=== PATIENT | female | born 1995 | race Caucasian/White ===

== ENCOUNTER 2018-08-20 15:31 | Observation (INO) | payer BC, SELFPAY ==
[2018-08-20 15:36] VITALS: BP 148/105; PULSE 71; RESP 15; TEMP 36.4; O2SAT 98; BMI 30.9
[2018-08-20 16:02] LABS: Add Manual Diff / Slide Review NO; Basophils Percent Auto 0.8 % (0-2); Eosinophils Percent Auto 2.8 % (2-4); Hematocrit 40.5 % (36-46); Hemoglobin 14.1 g/dL (12.0-16.0); Lymphocytes Percent Auto 15.4 % (25-40); Mean Corpuscular HGB Conc 34.8 % (30-36); Mean Corpuscular Hemoglobin 27.3 PG (26-34); Mean Corpuscular Volume 78.5 fL (80-100); Monocytes Percent Auto 4.7 % (3-14); Neutrophils Absolute Auto 9300 /uL (3000-5900); Neutrophils Percent Auto 76.3 % (50-75); Platelet Count 378 X10^3/uL (150-400); Red Blood Cell Count 5.16 X10^6/uL (4.0-5.2); Red Cell Distribution Width 13.6 % (11.6-14.8); White Blood Cell Count 12.2 X10^3/uL (4.5-11.0)
[2018-08-20 16:03] LABS: Bacteria Urine Occasional (0-1); Culture Indicated Urine Specimen Cultured; RBC Urine 5-10/HPF (0-5/HPF); Squamous Epithelial Cell Urine 0-1 /HPF; WBC Urine 5-10/HPF (0-5/HPF)
[2018-08-20 16:13] LABS: INR 1.2 (0.9-1.3); Prothrombin Time 13.3 SECONDS (10.1-12.7)
[2018-08-20 16:16] LABS: PTT Partial Thromboplastin Tim 33 SECONDS (26.4-36.2)
[2018-08-20 16:23] LABS: Alanine Aminotransferase 31 IU/L (9-52); Albumin 4.7 g/dL (3.5-5.0); Albumin Globulin Ratio 1.5 (1.0-2.8); Alkaline Phosphatase 68 U/L (38-126); Aspartate Aminotransferase 27 IU/L (14-36); BUN Creatinine Ratio 12.9 (6-22); Bilirubin Total 0.5 mg/dL (0.2-1.3); Blood Urea Nitrogen 9 mg/dL (7-17); Calcium 9.7 mg/dL (8.4-10.2); Carbon Dioxide 29 mmol/L (22-32); Chloride 103 mmol/L (98-107); Estimated Glomerular Filt Rate > 60.0 mL/min (>60); Globulin 3.2 g/dL (1.7-4.1); Glucose 87 mg/dL (70-100); HEMOLYSIS < 15 (0-50); Lipase 92 U/L (23-300); Potassium 3.8 mmol/L (3.4-5.1); Sodium 144 mmol/L (137-145); Total Protein 7.9 g/dL (6.3-8.2)
[2018-08-20 18:57] VITALS: BP 139/93; PULSE 76; RESP 18; TEMP 37.1; O2SAT 99
--- NOTE | 2018-08-20 19:23 | DI.US.S_ITS ---
PROCEDURE: US PELVIC COMPLETE INDICATIONS: RIGHT LOWER QUADRANT PAIN TECHNIQUE: Real-time scanning was performed of the pelvic organs, with image documentation. Additional endovaginal scanning was necessary due to incomplete visualization of the adnexal and endometrial structures by transabdominal scanning. COMPARISON: None. FINDINGS: Transabdominal scanning: Limited scanning through the kidneys shows no hydronephrosis. No pathologic free abdominal or pelvic fluid. Appendix not seen. Endovaginal scanning: Uterus: Uterus is normal in size at 7.2 x 3.6 x 4.4 cm. The endometrium measures 6.6 mm in combined thickness. Ovaries: Normal bilaterally IMPRESSION: Negative pelvic ultrasound. Appendix not seen. Dictated by: Amanda Womack M.D. on 08/20/2018 at 20:37 Approved by: Amanda Womack M.D. on 08/20/2018 at 20:37
--- NOTE | 2018-08-20 19:34 | ED_ITS ---
HPI - Abdominal Pain General Chief Complaint: Abdominal Pain Stated Complaint: lower right abdominal pain Time Seen by Provider: 08/20/18 18:00 Source: patient Mode of arrival: ambulatory Limitations: no limitations History of Present Illness HPI narrative: 22-year-old female, nonsmoker, otherwise healthy presents to the emergency department with her father in the chief complaint of gradually worsening right lower quadrant pain since Saturday. She now has significant pain , particularly with any motion with nausea and vomiting. Her last menstrual cycle was the end of last month and was normal. Last food was yesterday, she has been drinking water today with some success. She denies dysuria, frequency or urgency. She denies any hematuria. She has no vaginal bleeding or discharge. She denies any back or flank pain MD complaint: abdominal pain Onset (ago): minute(s) Pain Consistency: constant Location: RLQ Severity: severe Severity scale (1-10): 9 Quality: cramping and aching Radiation: RUQ Migration to: no migration Relieving factors: rest Exacerbating factors: movement Associated symptoms: nausea, vomiting, fever and chills Related Data Date of Last Menstrual Period: 07/23/18 Home Medications Medication Instructions Recorded Confirmed amlodipine 5 mg PO DAILY 08/20/18 Allergies Allergy/AdvReac Type Severity Reaction Status Date / Time azithromycin [From Zithromax] Allergy Verified 08/20/18 15:36 nitrofurantoin Allergy Verified 08/20/18 15:36 [From Macrobid] Penicillins AdvReac Verified 08/20/18 15:36 Review of Systems Review of Systems All systems reviewed & are unremarkable except as noted in HPI and below Constitutional Reports chills, Reports fever(s), Denies lethargy and Denies weakness Eyes Denies change in vision, Denies eye discharge, Denies irritation and Denies loss of vision ENT Ears, Nose, Mouth, and Throat: Denies change in voice, Denies neck pain and Denies sore throat Cardiovascular Denies chest pain, Denies irregular heart rhythm, Denies lightheadedness, Denies palpitations, Denies dyspnea, Denies dyspnea on exertion and Denies orthopnea Respiratory Denies cough, Denies dyspnea, Denies dyspnea on exertion and Denies wheezing Gastrointestinal Gastrointestinal: Reports abdominal pain, Denies change in bowel habits, Denies diarrhea, Reports nausea and Reports vomiting Genitourinary Denies hematuria, Denies flank pain, Denies urinary incontinence and Denies urinary urgency Musculoskeletal Denies neck pain Integumentary/Breasts Denies pruritus, Denies erythema, Denies rash and Denies wounds Neurologic Denies confusion, Denies loss of vision and Denies weakness Psychiatric Denies anxiety, Denies confusion, Denies depression, Denies homicidal ideation and Denies suicidal ideation Endocrine Denies palpitations Hematologic/Lymphatic Denies easy bruising Allergic/Immunologic Denies wheezing [facility] Social History household members: friend(s) Smoking Status: Never smoker Exam Narrative Exam Narrative: 22-year-old female appears on well, obviously in significant pain Initial Vital Signs Initial Vital Signs: Vital Signs Temperature 97.5 F L 08/20/18 15:36 Pulse Rate 71 08/20/18 15:36 Respiratory Rate 15 08/20/18 15:36 Blood Pressure 148/105 H 08/20/18 15:36 Pulse Oximetry 98 08/20/18 15:36 Const General: cooperative, well developed and acute distress Nutritional Appearance: well nourished Orientation: alert, awake, oriented x3 and not confused HENMT Head: normocephalic and atraumatic Ears: external ears normal and TM's normal bilaterally Nose: external nose normal and No nasal discharge Face and sinus: sinuses nontender, face symmetric, no sinus tenderness and No dry mucous membranes Mouth: oral mucosae normal and moist mucous membranes Teeth and gingiva: dentition normal Throat: tonsils normal and uvula midline Eyes General: appearance normal, both eyes and all related structures Eyelids: eyelids normal Conjunctivae: conjunctivae normal Sclera: sclerae normal Pupils: PERRL EOM: EOM intact bilaterally Chest Chest: normal inspection of the chest Cardio Rate: regular rate Rhythm: regular rhythm Heart Sounds: no click, no gallops, no murmurs and no rubs Pulses: normal peripheral pulses GI Palpation: soft, guarding and tender (Right lower quadrant with rebound, obturator, psoas, heel tap, Rovsing's) General: bimanual renal exam normal bilaterally External Female Exam: external appearance normal Speculum Exam - Vagina: normal appearance of the vagina Speculum Exam - Cervix: normal appearance of the cervix Bimanual Exam- Vagina & Uterus: normal bimanual exam Bimanual Exam- Adnexa, other: normal adnexae Back/Spine/Pelvis Back: No CVA tenderness Cervical Spine: cervical ROM normal and No pain with cervical ROM Thoracic/Lumbar Spine: thoracic and lumbar spine normal to inspection Skin General: no rashes or lesions noted, No jaundice and No petechiae Neuro General: alert, oriented x3, gait normal and no focal motor deficits Speech: speech normal Extrem General: full ROM, no clubbing, cyanosis or edema, no pedal edema and no calf tenderness Psych Appearance: well kempt Mental Status: mental status grossly normal Attitude: cooperative Thought Content: normal and suicidality Judgment: judgment good Course Course Narrative: Patient presents with a history and physical which are very concerning for appendicitis. After discussion with surgery ultrasound ordered initially which was not terribly helpful. Upon receipt of this ultrasound we decided to order a CT scan with IV contrast which again showed no obvious suggestion of the etiology of her pain. Orders Ordered: ED Orders 08/20/18 19:23 US pelvic complete Stat 08/20/18 20:39 CT abdomen pelvis w con Stat Sodium Chloride (Normal Saline 0.9%) 1,000 mls @ 125 mls/hr IV CONT RUDDY Last Admin: 08/21/18 00:55 Dose: 125 mls/hr HYDROMORPHONE LANGUAGE INSTRUCTOR (Dilaudid 6 Mg/30 Ml) 6 mg in 30 mls @ 0 mls/hr IV Q8HR RUDDY Naloxone HCl (Narcan) 0.2 mg IV Q2MIN PRN; Protocol PRN Reason: Opiate Reversal Ondansetron HCl (Zofran) 4 mg IV Q4HR PRN PRN Reason: Nausea And Vomiting Last Admin: 08/21/18 00:55 Dose: 4 mg Admin: 08/20/18 19:38 Dose: 4 mg Ondansetron HCl (Zofran) 4 mg IV Q4H PRN PRN Reason: Nausea And Vomiting Discontinued Medications Hydromorphone HCl (Dilaudid) 0.5 mg IV NOW ONE Stop: 08/20/18 19:27 Last Admin: 08/20/18 19:39 Dose: 0.5 mg Hydromorphone HCl (Dilaudid) 0.5 mg IV NOW ONE Stop: 08/20/18 20:55 Last Admin: 08/20/18 21:01 Dose: 0.5 mg Lactated Ringer's (Lactated Ringers) 1,000 mls @ 1,000 mls/hr IV BOLUS ONE Stop: 08/20/18 20:25 Last Infusion: 08/20/18 21:41 Dose: 0 mls/hr Admin: 08/20/18 19:37 Dose: 1,000 mls/hr Levofloxacin (Levaquin) 500 mg in 100 mls @ 100 mls/hr IV NOW ONE Stop: 08/20/18 21:34 Last Infusion: 08/20/18 22:15 Dose: 0 mls/hr Admin: 08/20/18 20:43 Dose: 100 mls/hr Consultations Consultation #1: Called to on-call surgery regarding this patient after exam. Request for ultrasound. Consultation #2: Dr. Darling will bring the patient in the hospital for serial abdominal exams and close follow-up Vital Signs - 8 hr 08/20/18 18:57 08/20/18 22:26 08/21/18 00:28 Temperature 98.7 F 98.5 F Pulse Rate 76 74 65 Respiratory Rate 18 16 Blood Pressure 134/80 Blood Pressure [Right Arm] 139/93 H 106/62 Pulse Oximetry 99 95 99 MDM - Abdominal Pain Differential Diagnosis Differential diagnosis: Likely abdominal pain, acute appendicitis, calculus of kidney, constipation, diverticulitis, endometriosis, gastroenteritis, pancreatitis and small bowel obstruction Lab Data Attestation: I reviewed the patient's lab results. Result diagrams: 08/20/18 15:45 08/20/18 15:45 Lab Results 08/20/18 08/20/18 08/20/18 Range/Units 15:45 15:45 15:45 WBC 12.2 H (4.5-11.0) X10^3/uL RBC 5.16 (4.0-5.2) X10^6/uL Hgb 14.1 (12.0-16.0) g/dL Hct 40.5 (36-46) % MCV 78.5 L (80-100) fL MCH 27.3 (26-34) PG MCHC 34.8 (30-36) % RDW 13.6 (11.6-14.8) % Plt Count 378 (150-400) X10^3/uL Neut % (Auto) 76.3 H (50-75) % Lymph % (Auto) 15.4 L (25-40) % [place] % (Auto) 4.7 (3-14) % Eos % (Auto) 2.8 (2-4) % Baso % (Auto) 0.8 (0-2) % Neut # (Auto) 9300 H (5139-8078) /uL PT 13.3 H (10.1-12.7) SECONDS INR 1.2 (0.9-1.3) APTT 33 (26.4-36.2) SECONDS Sodium 144 (137-145) mmol/L Potassium 3.8 (3.4-5.1) mmol/L Chloride 103 (98-107) mmol/L Carbon Dioxide 29 (22-32) mmol/L BUN 9 (7-17) mg/dL Creatinine 0.70 (0.52-1.04) mg/dL Estimated GFR > 60.0 (>60) mL/min BUN/Creatinine Ratio 12.9 (6-22) Glucose 87 (70-100) mg/dL Calcium 9.7 (8.4-10.2) mg/dL Total Bilirubin 0.5 (0.2-1.3) mg/dL AST 27 (14-36) IU/L ALT 31 (9-52) IU/L Alkaline Phosphatase 68 (38-126) U/L Total Protein 7.9 (6.3-8.2) g/dL Albumin 4.7 (3.5-5.0) g/dL Globulin 3.2 (1.7-4.1) g/dL Albumin/Globulin Ratio 1.5 (1.0-2.8) Lipase 92 (23-300) U/L Urine RBC (0-5/HPF) Urine WBC (0-5/HPF) Ur Squamous Epith Cells Urine Bacteria (None) Ur Culture Indicated? Micro UA Comment 08/20/18 Range/Units 15:50 WBC (4.5-11.0) X10^3/uL RBC (4.0-5.2) X10^6/uL Hgb (12.0-16.0) g/dL Hct (36-46) % MCV (80-100) fL MCH (26-34) PG MCHC (30-36) % RDW (11.6-14.8) % Plt Count (150-400) X10^3/uL Neut % (Auto) (50-75) % Lymph % (Auto) (25-40) % [place] % (Auto) (3-14) % Eos % (Auto) (2-4) % Baso % (Auto) (0-2) % Neut # (Auto) (3414-9469) /uL PT (10.1-12.7) SECONDS INR (0.9-1.3) APTT (26.4-36.2) SECONDS Sodium (137-145) mmol/L Potassium (3.4-5.1) mmol/L Chloride (98-107) mmol/L Carbon Dioxide (22-32) mmol/L BUN (7-17) mg/dL Creatinine (0.52-1.04) mg/dL Estimated GFR (>60) mL/min BUN/Creatinine Ratio (6-22) Glucose (70-100) mg/dL Calcium (8.4-10.2) mg/dL Total Bilirubin (0.2-1.3) mg/dL AST (14-36) IU/L ALT (9-52) IU/L Alkaline Phosphatase (38-126) U/L Total Protein (6.3-8.2) g/dL Albumin (3.5-5.0) g/dL Globulin (1.7-4.1) g/dL Albumin/Globulin Ratio (1.0-2.8) Lipase (23-300) U/L Urine RBC 5-10/hpf H (0-5/HPF) Urine WBC 5-10/hpf H (0-5/HPF) Ur Squamous Epith Cells 0-1 /hpf Urine Bacteria Occasional (0-1) (None) Ur Culture Indicated? Specimen cultured Micro UA Comment Not Reportable Point of care testing: Point of Care Testing Test Results Negative Urine Dip Bedside Urine Glucose Negative Bedside Urine Bilirubin - Negative Bedside Urine Ketone - Negative Urine Specific [place] 1.015 Bedside Urine Occult Blood +/- Bedside Urine pH 7.0 Bedside Urine Protein - Negative Bedside Urine Urobilinogen - Negative Bedside Urine Nitrite - Negative Bedside Urine Leukocytes ++ 125 Esterase MDM Narrative Medical decision making narrative: Appendicitis considered based on physical exam, history and elevated white count. Ultrasound and CT suggests no appendicitis Ureterolithiasis considered but not seen on CT scan Ovarian torsion, abscess, cyst considered but normal ultrasound Cervicitis, PID considered but no report of vaginal discharge and normal pelvic exam Discharge Plan Departure Patient Disposition: Admitted as Observation Clinical Impression: Abdominal pain, acute, right lower quadrant Discharge Date/Time: 08/21/18 00:24 Interventions: ED Discharge Assessment Last Done: 08/20/18 23:25 Admit Date/Time: 08/20/18 23:44 Admit Provider: Sharyn Darling
[2018-08-20] MEDS: LACTATED RINGERS 1,000 ML 1000 ML IV (19:37)
[2018-08-20] MEDS: ONDANSETRON 4 MG/2 ML INJ IV (19:38)
[2018-08-20] MEDS: HYDROMORPHONE 0.5 MG INJ IV ×2 (19:39→21:01)
--- NOTE | 2018-08-20 20:39 | DI.CT.S_ITS ---
PROCEDURE: CT ABDOMEN PELVIS W CON INDICATIONS: severe RLQ pain TECHNIQUE: After the administration of intravenous contrast, 5 mm thick sections acquired from the diaphragm to the symphysis. 5 mm coronal and sagittal reformats were acquired. For radiation dose reduction, the following was used: automated exposure control, adjustment of mA and/or kV according to patient size. COMPARISON: None. FINDINGS: Image quality: Excellent. ABDOMEN: Lung bases: Lung bases are clear. Heart size is normal. Solid organs: Liver is normal in size and enhancement. Gallbladder is within normal limits. Biliary system is non dilated. Pancreas enhances normally. Spleen is normal in size and enhancement. No adrenal nodules. Mild right urothelial enhancement involving the renal pelvis and proximal ureter. Kidneys demonstrate otherwise normal size and enhancement, without hydronephrosis. Peritoneum and bowel: Bowel loops demonstrate normal wall thickness and caliber. No free fluid or air. Normal appendix. Nodes and vessels: No retroperitoneal or mesenteric adenopathy by size criteria. Aorta and inferior vena cava are normal in size. Miscellaneous: No ventral hernias. PELVIS: Genitourinary: Bladder wall thickness is normal. Miscellaneous: No inguinal hernias or adenopathy. Bones: No suspicious bony lesions. No vertebral body compression fractures. IMPRESSION: 1. Right-sided urothelial enhancement, suggestive of an infectious or inflammatory process. Recommend correlation with urinalysis. Urology consultation recommended to exclude neoplasm. 2. Normal appendix. Dictated by: Amanda Womack M.D. on 08/20/2018 at 21:16 Approved by: Amanda Womack M.D. on 08/20/2018 at 21:17
[2018-08-20] MEDS: levoFLOXacin 500 MG/100 ML PIGGYBACK 100 MG IV (20:43)
[2018-08-20 22:26] VITALS: BP 106/62; PULSE 74; O2SAT 95
[2018-08-21] VITALS (7 sets, daily range): BP systolic 120–134; BP diastolic 66–91; PULSE 58–74; RESP 16–18; TEMP 36.4–37; O2SAT 95–99; BMI 30.9
[2018-08-21] MEDS: SODIUM CHLORIDE 0.9% 1,000 ML 125 ML IV ×3 (00:55→17:02)
[2018-08-21] MEDS: ONDANSETRON 4 MG/2 ML INJ IV (00:55)
[2018-08-21] MEDS: HYDROMORPHONE PCA 6 MG/30 ML PCA.VIAL IV ×3 (05:48→22:04)
--- NOTE | 2018-08-21 17:01 | P.HP_ITS ---
History of Present Illness Date Patient Seen: 08/21/18 Time Patient Seen: 16:54 Chief complaint: lower right abdominal pain Narrative: Carisa is a very pleasant 22-year-old lady who was flown from this and wants to our emergency room last evening with a history of fairly severe right lower quadrant pain. Her father is with her and the 2 of them report that she had been having nausea and vomiting and some abdominal pain since Saturday. She was uncomfortable enough in our emergency room that were she received a significant amount of narcotic to control her pain. She had multiple studies in our emergency department with out a clear etiology identified. Specifically, her appendix is normal and her ovaries are normal. There is no evidence of pelvic infection. The only abnormality seen on her CT was some inflammation of the distal right ureter. Dr. Carty discussed these findings with the urologist from [facility] who was of the opinion that this was not the cause of her pain. She has therefore been admitted for observation. Since her admission, actually reports that her pain is significantly improved. She has not had any further nausea. She is currently hungry. Patient History Family & Social History Family History: Reviewed 08/21/18 by Sharyn Darling MD Social History: household members friend(s) Prior Living Arrangements House Safety & Behavioral: Feels Safe in Current Yes Environment Been Physically Hurt or No Threatened By a Person Suicidal Ideation Description None Suicide Plan Description No Plan Tobacco & Substance use: Smoking Status Never smoker alcohol intake frequency 0-2 drinks per day Substance Use Type does not use Meds Home Medications Medication Instructions Recorded Confirmed Type amlodipine 5 mg PO DAILY 08/20/18 08/21/18 History Allergies Allergy/AdvReac Type Severity Reaction Status Date / Time azithromycin [From Zithromax] Allergy Verified 08/20/18 15:36 nitrofurantoin Allergy Verified 08/20/18 15:36 [From Macrobid] Penicillins AdvReac Verified 08/20/18 15:36 Review of Systems Review of Systems All systems reviewed & are unremarkable except as noted in HPI and below Exam Vital Signs (past 8 hours): - 08/21/18 13:20 08/21/18 15:35 Temperature 98.1 F 97.8 F Pulse Rate 61 65 Respiratory Rate 16 16 Blood Pressure 125/66 132/66 Pulse Oximetry 98 97 Oxygen Delivery Method Room Air Narrative Exam Narrative: Very pleasant, well-nourished, and well-developed young lady. She is quite sleepy but is easily arousable HEENT: Normocephalic and atraumatic, pupils are equal round and reactive to light accommodation with anicteric sclera Lungs: Clear bilaterally Heart: Regular rate and rhythm Abdomen: Soft, no incisions noted. Active bowel sounds. Tenderness to palpation across the entire pelvis. Patient localizes her pain to just to the right and inferior to the umbilicus. She reports pain in this site with palpation on either side of her abdomen. She walked today and reports that the pain was more significant when she walked. Even considering all of these things she said the pain is better than when she was admitted. She has mild voluntary rebound but no guarding. Mild heel tap. Mild Rovsing sign. Extremities: Warm and well perfused and without edema. Objective Labs Result Diagrams: 08/20/18 15:45 08/20/18 15:45 Assessment & Plan Plan: Assessment/Plan Narrative: 22-year-old lady with right lower quadrant pain of unknown etiology. Our only finding to target is the inflammation in the right ureter. I will continue her Levaquin. She has a penicillin allergy though she does not know what her reaction was in the past. As long as she is improving, I hesitate to change her treatment. Start clear liquids tonight. 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 Hopefully we can stop this in the next 24 hr. I will recheck her white count in the morning.
--- NOTE | 2018-08-21 17:50 | PC.NURSE ---
Pt A&O x3, pleasant and cooperative w/ staff and is able to make needs known when nec. Patient resting in bed, w/ father at bedside. Pt rates pain in RLQ 5/10 and tolerable. SILK CREPE MACHINE OPERATOR at bedside, Dilaudid w/ standards settings, see MAR. Pt uses call light w/ needs. Patient has been advanced to clear liq. for dinner, thus far has aaron. well w/ no N/V, will cont. to monitor. Call light w/ in reach, bed in low pos.
[2018-08-22] MEDS: SODIUM CHLORIDE 0.9% 1,000 ML 125 ML IV ×2 (01:04→10:53)
[2018-08-22] MEDS: HYDROMORPHONE PCA 6 MG/30 ML PCA.VIAL IV ×2 (06:10→14:20)
[2018-08-22 06:14] VITALS: BP 129/74; PULSE 69; RESP 16; TEMP 36.5; O2SAT 99
[2018-08-22 06:17] LABS: Add Manual Diff / Slide Review NO; Basophils Percent Auto 0.8 % (0-2); Eosinophils Percent Auto 5.3 % (2-4); Hematocrit 38.5 % (36-46); Hemoglobin 12.9 g/dL (12.0-16.0); Mean Corpuscular HGB Conc 33.6 % (30-36); Mean Corpuscular Hemoglobin 26.8 PG (26-34); Mean Corpuscular Volume 79.9 fL (80-100); Neutrophils Absolute Auto 5800 /uL (3000-5900); Neutrophils Percent Auto 62.9 % (50-75); Platelet Count 314 X10^3/uL (150-400); Red Blood Cell Count 4.81 X10^6/uL (4.0-5.2); Red Cell Distribution Width 13.6 % (11.6-14.8); White Blood Cell Count 9.2 X10^3/uL (4.5-11.0)
[2018-08-22 06:19] LABS: BUN Creatinine Ratio 11.4 (6-22); Blood Urea Nitrogen 8 mg/dL (7-17); Calcium 8.6 mg/dL (8.4-10.2); Carbon Dioxide 26 mmol/L (22-32); Chloride 105 mmol/L (98-107); Estimated Glomerular Filt Rate > 60.0 mL/min (>60); Glucose 84 mg/dL (70-100); HEMOLYSIS < 15 (0-50); Potassium 3.5 mmol/L (3.4-5.1); Sodium 139 mmol/L (137-145)
[2018-08-22 08:40] VITALS: BP 125/80; PULSE 66; RESP 16; TEMP 36.3; O2SAT 98
[2018-08-22] MEDS: levoFLOXacin 500 MG/100 ML PIGGYBACK 100 MG IV (11:32)
[2018-08-22 12:55] VITALS: BP 129/83; PULSE 60; RESP 16; TEMP 36.7; O2SAT 97
--- NOTE | 2018-08-22 13:07 | P.PN_ITS ---
Subjective Date Patient Seen: 08/22/18 Time Patient Seen: 11:02 Interval history: The patient is woman admitted with right lower quadrant pain. She states that a it is about a 5/10 when she moves around. When she lay still it does not bother her very much. She has had no nausea or vomiting. Has been passing flatus but not had a bowel movement for the past 2 days. She was not started on any antibiotics for reasons that are unclear. Her temperature and white count have been normal however. CT scan was nonrevealing except for perhaps some inflammation of her distal ureter. Exam Vital Signs (past 8 hours): - 08/22/18 06:14 08/22/18 08:40 Temperature 97.7 F 97.3 F L Pulse Rate 69 66 Respiratory Rate 16 16 Blood Pressure 129/74 125/80 Pulse Oximetry 99 98 Oxygen Delivery Method Room Air Narrative Exam Narrative: Operative no apparent distress. Her eyes are nonicteric. Lungs are clear to auscultation without rales or rhonchi. Heart regular rate and rhythm without murmur gallop. Abdomen is mildly protuberant soft. She says there is tenderness when I palpate a right lower quadrant but there is no reaction on her face. Infected remit her entire abdomen is fairly soft. If there is tenderness is localized to the right lower quadrant. Objective Labs Result Diagrams: 08/22/18 05:49 08/22/18 05:49 Labs: Laboratory Results - last 24 hr 08/22/18 08/22/18 05:49 05:49 WBC 9.2 RBC 4.81 Hgb 12.9 Hct 38.5 MCV 79.9 L MCH 26.8 MCHC 33.6 RDW 13.6 Plt Count 314 Neut % (Auto) 62.9 Lymph % (Auto) 24.0 L [place] % (Auto) 7.0 Eos % (Auto) 5.3 H Baso % (Auto) 0.8 Neut # (Auto) 5800 Sodium 139 Potassium 3.5 Chloride 105 Carbon Dioxide 26 BUN 8 Creatinine 0.70 Estimated GFR > 60.0 BUN/Creatinine Ratio 11.4 Glucose 84 Calcium 8.6 Assessment & Plan (1) Abdominal pain, acute, right lower quadrant: Problem details: Patient has a urinary tract infection growing E coli. Will place her on Levaquin 500 q.day. The bacteria is sensitive to Levaquin and this would also be good treatment for any intra-abdominal issue. Encouraged her to walk and deep breathe and cough. We will advance her diet as she really has no GI symptoms. Current visit: Yes Status: Acute
[2018-08-22 15:20] VITALS: BP 135/87; PULSE 74; RESP 16; TEMP 36.4; O2SAT 97
--- NOTE | 2018-08-22 15:54 | CM.DANOTE ---
Discharge Planning/Care Management DCP: assessment: case received, EMR reviewed yesterday, and made caseload triage decision to see pt today. Met this afternoon with pt and introduced self and role. Pt is a 22 year old female who was airlifted from [facility] close to midnight on 08/20. Admitted to surgeon Dr. Darling. Payer: JAYS[facility]/Natividad. Dr. West has dx a UTI, diet has been updated and plan is for pt to either go home later this evening or tomorrow. Her mother will be here to pick her up, she lives in [facility]. 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 Pt notes she is feeling better, glad she did not need surgery. Home when ok'd for same. CM Discharge Assessment Start: 08/22/18 15:38 Freq: Status: Active Protocol: Document 08/22/18 15:38 ITV (Rec: 08/22/18 15:54 ITV [id number]) Discharge Planning Assessment Advance Directives? No History Provided By Patient Medical Record Prior Living Arrangements House Household Members friend(s) Comment lives on [place] with a roommate . Her father works on [facility], lives off [address] Independent with ADL's Yes Is patient alert and oriented? Yes Referrals Initiated None needed Whiteboard Updated in Patient Room with Yes name and ext. # of Voice Coach Review Status In Process Next Review Type Continued Stay Review
[2018-08-22] MEDS: ENOXAPARIN 40 MG/0.4 ML SYRINGE SUBCUT (17:57)
[2018-08-22 19:45] VITALS: BP 127/86; PULSE 70; RESP 16; TEMP 36.3; O2SAT 97
[2018-08-22 23:47] VITALS: BP 129/89; PULSE 64; RESP 20; TEMP 36.6; O2SAT 97
[2018-08-23] MEDS: ONDANSETRON 4 MG/2 ML INJ IV (00:25)
[2018-08-23] MEDS: OXYCODONE/ACETAMINOPHEN 5/325 TABLET 2 TAB PO (04:15)
[2018-08-23 04:16] VITALS: BP 118/83; PULSE 60; RESP 20; TEMP 36.3; O2SAT 99
[2018-08-23 07:35] VITALS: BP 115/76; PULSE 53; RESP 16; TEMP 36.3; O2SAT 98
[2018-08-23] MEDS: ENOXAPARIN 40 MG/0.4 ML SYRINGE SUBCUT (09:48)
[2018-08-23] MEDS: levoFLOXacin 500 MG/100 ML PIGGYBACK 100 MG IV (11:36)
--- NOTE | 2018-08-23 12:49 | P.DS_ITS ---
History of Present Illness Date Patient Seen: 08/23/18 Time Patient Seen: 12:47 Chief complaint: lower right abdominal pain Narrative: The patient is a woman admitted with right lower quadrant pain. She had a normal CT scan of the abdomen including a normal appendix except for some possible inflammation of the distal right ureter. Her white blood cell count and temperature were normal throughout. Discharge Providers Date of admission: 08/20/18 23:44 Discharge provider: Steve West MD Summary Discharge Diagnosis: E coli urinary tract infection acute Hospital Course: The patient was admitted for observation. She never had elevation of her white blood cell count or temperature. She was begun on Levaquin. Urinary culture grew E coli. Her pain improved markedly and she was begun on a diet and discharged to follow up with her primary care provider. (the E coli was resistant to Septra. It was sensitive to ampicillin Keflex Cipro and Levaquin. Because of the patient's severe symptoms she was given Cipro which orally should reach the equivalent of IV doses.) Status at Discharge Cognitive/behavioral status at discharge: Normal Functional status at discharge: independent ambulation Overall status at discharge: patient is progressing back to baseline (Nearly at baseline ) Time Spent with Patient Less than 30 minutes Exam Vital Signs (past 8 hours): - 08/23/18 07:35 Temperature 97.4 F L Pulse Rate 53 L Respiratory Rate 16 Blood Pressure 115/76 Pulse Oximetry 98 Oxygen Delivery Method Room Air Narrative Exam Narrative: Lungs were clear. Heart regular rate and rhythm without murmur gallop. Abdomen is soft nontender. No masses. No guarding. Objective Labs Result Diagrams: 08/22/18 05:49 08/22/18 05:49 Discharge Plan Discharge Plan Patient Disposition: Home Discharge comment: You had a urinary tract infection. The bacteria was E.coli. Take the antibiotic prescribed until it is gone. You should follow up with your family doctor sometime in the next week if possible Discharge Med Rec/Prescriptions Prescriptions: New ciprofloxacin HCl 500 mg tablet 500 mg PO BID Qty: 7 RF: 0 Continue amlodipine 5 mg tablet 5 mg PO DAILY RF: 0 Provider Discharge Instructions Diet: Diet as Tolerated Activity: no restriction Other treatments: You may develop a vaginal yeast infection. Contact Dr. Farley or [facility] ([phone]) if that occurs. Skin/Wound/Dressing Care Report to your healthcare provider any signs of infection, such as:: chills, fever and increased pain Visit Report/Discharge Packet Instructions: DI for Urinary Tract Infection (UTI), Ciprofloxacin Visit Report Forms: Stroke Signs & Symptoms Discharge Data Attending Provider: Sharyn Darling Admit Date/Time: 08/20/18 23:44
--- NOTE | 2018-08-23 13:42 | PC.NURSE ---
Pt reports improvement in pain. Tolerating regular diet. Given script and paperwork and taken by wheelchair to private vehicle with family. IV removed prior.
== END 2018-08-23 13:43 | disposition home or self-care (01) ==
LOC: ED 23:42 → AC 08-21 07:30
PROVIDERS: Emergency Medicine; Admitting Provider Surgery; Emergency Provider Emergency Medicine; Visit Provider Surgery
DX: N39.0 Urinary tract infection, site not specified (principal); B96.20 Unspecified Escherichia coli [E. coli] as the cause of diseases classified elsewhere; R10.31 Right lower quadrant pain
CPT/HCPCS: 36415; 36591; 74177; 76830; 76856; 80048; 80053; 81003; 81015; 81025; 83690; 85025; 85610; 85730; 87077; 87086; 87186; 96361; 96365; 96366; 96375; 96376; 99283; 99285; G0378; J1170; J1650; J1956; J2405; Q9967

== ENCOUNTER → 2021-10-18 07:42 | Outpatient (CLI) | payer BC, SELFPAY ==
[2018-08-21 00:24] VITALS: BMI 30.9
[2021-10-18 20:58] LABS: COVID19 - ORCAS (NP or Nasal) Negative (Negative)
== END ==
PROVIDERS: PCP Physician Assistant; Visit Provider Physician Assistant
DX: Z20.822 Contact with and (suspected) exposure to COVID-19 (principal)
CPT/HCPCS: U0003

== ENCOUNTER → 2021-12-19 09:00 | Outpatient (CLI) | payer BC, SELFPAY ==
[2021-12-01 10:33] VITALS: BMI 30.9
[2021-12-19 19:27] LABS: Add Manual Diff / Slide Review NO; Basophils Absolute Auto 100 /uL (0-100); Basophils Percent Auto 0.8 % (0-2); Eosinophils Absolute Auto 200 /uL (0-450); Hematocrit 41.5 % (36-46); Hemoglobin 14.1 g/dL (12.0-16.0); Lymphocytes Absolute Auto 2200 /uL (1100-4500); Lymphocytes Percent Auto 26.4 % (25-40); Mean Corpuscular Volume 82.4 fL (80-100); Monocytes Absolute Auto 500 /uL (0-900); Monocytes Percent Auto 6.7 % (3-14); Neutrophils Absolute Auto 5100 /uL (1500-7000); Neutrophils Percent Auto 63.1 % (50-75); Platelet Count 325 X10^3/uL (150-400); Red Blood Cell Count 5.03 X10^6/uL (4.0-5.2); Red Cell Distribution Width 13.3 % (11.6-14.8); White Blood Cell Count 8.2 X10^3/uL (4.5-11.0)
[2021-12-19 19:36] LABS: Alanine Aminotransferase 18 IU/L (<35); Albumin 4.2 g/dL (3.5-5.0); Albumin Globulin Ratio 1.5 (1.0-2.8); Alkaline Phosphatase 60 U/L (38-126); Aspartate Aminotransferase 25 IU/L (14-36); BUN Creatinine Ratio 16.7 (6-22); Bilirubin Total 0.4 mg/dL (0.2-1.3); Blood Urea Nitrogen 13 mg/dL (7-17); Calcium 9.4 mg/dL (8.4-10.2); Carbon Dioxide 30 mmol/L (22-32); Chloride 103 mmol/L (98-107); Cholesterol 179 mg/dL (140-199); Estimated Glomerular Filt Rate > 60.0 mL/min (>60); Globulin 2.8 g/dL (1.7-4.1); Glucose 78 mg/dL (70-100); HDL Cholesterol 36 mg/dL (40-60); HEMOLYSIS < 15 (0-50); LDL Cholesterol Calculated 114 mg/dL (<100); Potassium 3.8 mmol/L (3.4-5.1); Sodium 137 mmol/L (137-145); Triglycerides 143 mg/dL (35-150)
[2021-12-19 19:56] LABS: TSH w/ Reflex to FT4 1.43 uIU/mL (0.47-4.68)
== END ==
PROVIDERS: PCP Physician Assistant; Visit Provider Physician Assistant
DX: I10 Essential (primary) hypertension (principal); R60.9 Edema, unspecified; Z13.220 Encounter for screening for lipoid disorders
CPT/HCPCS: 80053; 80061; 84443; 85025

== ENCOUNTER → 2022-07-19 11:30 | Outpatient (CLI) | payer OTHER, SELFPAY ==
[2022-05-16 13:28] VITALS: BMI 30.9
[2022-07-19 20:03] LABS: BUN Creatinine Ratio 13.6 (6-22); Blood Urea Nitrogen 9 mg/dL (7-17); Calcium 8.8 mg/dL (8.4-10.2); Carbon Dioxide 27 mmol/L (22-32); Chloride 105 mmol/L (98-107); Cholesterol 184 mg/dL (140-199); Estimated Glomerular Filt Rate > 60 mL/min (>60); Glucose 82 mg/dL (70-100); HDL Cholesterol 34 mg/dL (40-60); HEMOLYSIS < 15 (0-50); LDL Cholesterol Calculated 125 mg/dL (<100); Magnesium 2.5 mg/dL (1.6-2.3); Potassium 3.6 mmol/L (3.4-5.1); Sodium 141 mmol/L (137-145); Triglycerides 124 mg/dL (35-150)
[2022-07-19 20:31] LABS: TSH w/ Reflex to FT4 1.08 uIU/mL (0.47-4.68)
[2022-07-24 17:22] LABS: Aldosterone/Renin Activity Rat 3.7 (0.0-30.0); Plama Renin, LC/MS/MS 0.811 ng/mL/hr (0.167-5.380)
[2022-08-01 10:32] LABS: Metanephrine,Plasma <10.0 pg/mL (0.0-88.0)
== END ==
PROVIDERS: PCP Physician Assistant; Visit Provider Nurse Practitioner Acute Care
DX: I10 Essential (primary) hypertension (principal); R00.2 Palpitations
CPT/HCPCS: 80048; 80061; 82088; 83735; 83835; 84244; 84443

== ENCOUNTER → 2023-07-31 08:54 | Outpatient (CLI) | payer OTHER, SELFPAY ==
[2023-07-01 12:12] VITALS: BMI 30.9
[2023-07-31 21:57] LABS: Urine N gonorrhoeae NOT DETECTED
[2023-07-31 22:52] LABS: Urine Chlamydia NOT DETECTED
== END ==
PROVIDERS: PCP Family Medicine; Visit Provider Nurse Practitioner Adult Health
DX: Z01.812 Encounter for preprocedural laboratory examination (principal)
CPT/HCPCS: 87491; 87591

== ENCOUNTER → 2024-02-04 08:03 | Outpatient (CLI) | payer OTHER, SELFPAY ==
[2023-07-01 12:12] VITALS: BMI 30.9
[2024-02-04 19:22] LABS: Add Manual Diff / Slide Review NO; Basophils Absolute Auto 100 /uL (0-100); Eosinophils Absolute Auto 300 /uL (0-450); Eosinophils Percent Auto 2.4 % (2-4); Hematocrit 41.9 % (36-46); Hemoglobin 14.3 g/dL (12.0-16.0); Lymphocytes Absolute Auto 2700 /uL (1100-4500); Lymphocytes Percent Auto 24.1 % (25-40); Mean Corpuscular HGB Conc 34.2 % (30-36); Mean Corpuscular Hemoglobin 27.5 PG (26-34); Mean Corpuscular Volume 80.3 fL (80-100); Monocytes Absolute Auto 900 /uL (0-900); Monocytes Percent Auto 7.7 % (3-14); Neutrophils Absolute Auto 7400 /uL (1500-7000); Neutrophils Percent Auto 64.8 % (50-75); Platelet Count 361 X10^3/uL (150-400); Red Blood Cell Count 5.22 X10^6/uL (4.0-5.2); Red Cell Distribution Width 13.3 % (11.6-14.8); White Blood Cell Count 11.4 X10^3/uL (4.5-11.0)
[2024-02-04 19:40] LABS: Alanine Aminotransferase 20 IU/L (<35); Albumin 3.9 g/dL (3.5-5.0); Albumin Globulin Ratio 1.5 (1.0-2.8); Alkaline Phosphatase 80 U/L (38-126); Aspartate Aminotransferase 22 IU/L (14-36); BUN Creatinine Ratio 13.7 (6-22); Bilirubin Total 0.3 mg/dL (0.2-1.3); Blood Urea Nitrogen 10 mg/dL (7-17); Calcium 9.4 mg/dL (8.4-10.2); Carbon Dioxide 26 mmol/L (22-32); Chloride 108 mmol/L (98-107); Cholesterol 155 mg/dL (140-199); Estimated Glomerular Filt Rate > 60 mL/min (>60); Globulin 2.6 g/dL (1.7-4.1); Glucose 97 mg/dL (70-100); HDL Cholesterol 36 mg/dL (40-60); HEMOLYSIS < 15 (0-50); LDL Cholesterol Calculated 81 mg/dL (<100); Sodium 140 mmol/L (137-145); Total Protein 6.5 g/dL (6.3-8.2); Triglycerides 189 mg/dL (35-150)
[2024-02-04 19:41] LABS: Potassium 3.5 mmol/L (3.4-5.1)
== END ==
PROVIDERS: PCP Family Medicine; Visit Provider Family Medicine
DX: I10 Essential (primary) hypertension (principal); E78.00 Pure hypercholesterolemia, unspecified; Z68.35 Body mass index [BMI] 35.0-35.9, adult
CPT/HCPCS: 80053; 80061; 85025

== ENCOUNTER 2024-08-20 09:59 | Emergency (ER) | payer OTHER, SELFPAY ==
[2023-07-01 12:12] VITALS: BMI 30.9
[2024-08-20 10:00] VITALS: BP 163/106; PULSE 67; RESP 14; TEMP 37.3; O2SAT 99; BMI 33.1
[2024-08-20 10:10] VITALS: BP 163/104; PULSE 71; O2SAT 99
[2024-08-20 10:30] VITALS: BP 163/96; PULSE 82; O2SAT 99
--- NOTE | 2024-08-20 10:45 | DI.US.S_ITS ---
PROCEDURE: US PELVIC COMPLETE INDICATIONS: pain heavy bleeding TECHNIQUE: Real-time scanning was performed of the pelvic organs, with image documentation. Additional endovaginal scanning was necessary due to incomplete visualization of the adnexal and endometrial structures by transabdominal scanning. COMPARISON: [facility], US, US PELVIC COMPLETE, 08/20/2018, 19:42. FINDINGS: Uterus: Uterus is anteverted and normal in size at 7.0 x 4.2 x 3.8 cm. The myometrium is homogeneous. The endometrium measures 3 mm combined thickness. Question possible endometrial polyp measuring 1.3 x 0.3 cm. Ovaries: The right ovary measures 1.4 x 3.0 x 2.4 cm, with a calculated ovarian volume of 5 cc. The left ovary measures 1.8 x 1.7 x 2.6 cm, with a calculated ovarian volume of 4 cc. The ovaries have a normal sonographic appearance. Less than 12 follicles can be seen in each ovary. No adnexal masses are seen. Other: No pathologic free abdominal or pelvic fluid. IMPRESSION: Question small endometrial polyp. This is not definite. Otherwise unremarkable. We strive to produce accurate, complete, and clear reports of imaging services. To assist us in improving patient care, this report was composed using standard report templates and voice recognition software. Therefore, it may contain abnormal punctuation, insertions and/or omissions. Occasional wrong-word or sound-alike substitutions may occur. Though we review the report and make efforts to correct it, we do recommend that the report be read carefully in proper context to recognize any text inaccuracies. Dictated by: Isrrael Wilson M.D. on 08/20/2024 at 12:45 Approved by: Isrrael Wilson M.D. on 08/20/2024 at 12:49
[2024-08-20 10:50] LABS: Urine Volume 10mL (spun)
[2024-08-20 10:51] LABS: Bacteria Urine Few (2-10); Culture Indicated Urine Cult Not Indicated; RBC Urine None Seen (0-5/HPF); Squamous Epithelial Cell Urine 5-10 /HPF (0-5/HPF); WBC Urine 0-1/HPF (0-5/HPF)
[2024-08-20] MEDS: ACETAMINOPHEN 325 MG TABLET 975 MG PO (10:55)
--- NOTE | 2024-08-20 11:03 | ED_ITS ---
HPI - Female Genitourinary General Chief complaint: Vaginal Bleeding Stated complaint: Stomach pain Time Seen by Provider: 08/20/24 10:31 Source: patient Mode of arrival: Ambulatory History of Present Illness HPI Narrative: Patient is a 28-year-old female who presents today with menstrual cramps. She reports that she has had irregular periods her whole life she has not currently on control. She is sexually active using when protected sex. She reports having extremely heavy. This time which is very abnormal for her. She was going through a super tampon every hour and a half for the last 5 days and today she says it has finally slowed down. However she is having bad cramps which is not unusual for her however they seem to be worse. She feels like she is short of breath when she walks but thought it was due to pain. She has not dizzy or lightheaded she has not passed out. No nausea or vomiting. She reports that she is monogamous with 1 partner she is not actively trying to get but would not be upset if she did. She does not think that she was previously . Related Data Previous Rx's Medication Instructions Recorded albuterol sulfate 90 mcg/actuation 2 puff inhalation Q6H PRN 01/30/23 aerosol inhaler shortness of breath or wheezing #8.5 grams hydrochlorothiazide 25 mg tablet 25 mg PO DAILY #90 tabs 06/03/23 escitalopram oxalate 20 mg tablet 20 mg PO DAILY #90 tabs 04/22/24 (Lexapro) semaglutide 2 mg/dose (8 mg/3 mL) 2 mg (0.75 mL) SUBCUT QWEEK #3 mL 04/22/24 subcutaneous pen injector (Ozempic) hydrocodone 5 mg-acetaminophen 325 1 tab PO Q6H PRN pain #8 tabs 08/20/24 mg tablet Allergies Allergy/AdvReac Type Severity Reaction Status Date / Time amlodipine Allergy Intermediate Hives Verified 08/20/24 10:11 azithromycin [From Zithromax] Allergy Verified 08/20/24 10:11 nitrofurantoin Allergy Verified 08/20/24 10:11 [From Macrobid] Penicillins AdvReac Verified 08/20/24 10:11 Patient History Medical History (Updated 08/20/24 @ 13:07 by Katherine Patel DO) Asthma (~2004) Painful menstrual periods (~2009) Irregular menstrual cycle (~2016) Family History (Updated 12/18/21 @ 21:22 by Laury Myles) Father Hypertension Arthritis Sister Arthritis Grandfather Cancer Grandmother Cancer Diabetes mellitus alcohol intake frequency: holidays/special occasions only Substance Use Type: marijuana Exam Initial Vital Signs Initial Vital Signs: Vital Signs Temperature 99.1 F 08/20/24 10:00 Pulse Rate 67 08/20/24 10:00 Respiratory Rate 14 08/20/24 10:00 Blood Pressure 163/106 H 08/20/24 10:00 Pulse Oximetry 99 08/20/24 10:00 Oxygen Delivery Method Room Air 08/20/24 10:00 GENERAL: Alert 28-year-old and in no acute distress. HEENT: Head atraumatic,EOMI, pupils reactive, face symmetric, moist mucous membranes CARDIOVASCULAR: Regular rate and rhythm without murmurs, rubs or gallops. RESPIRATORY: Breath sounds equal bilaterally, no wheezes rales or rhonchi. ABDOMEN: Soft, nontender. Normoactive bowel sounds all 4 quadrants. No guarding or rebound. : No CVA tenderness EXTREMITIES: Normal range of motion, no clubbing or edema. Neurovascularly intact NEUROLOGICAL: Alert and oriented x4.Normal gait and speech. Cranial nerves II through XII grossly intact. SKIN: Warm, dry, no laceration, no petechiae, no rashes or lesions. Course Orders Ordered: ED Orders 08/20/24 10:00 Urine Microscopic Stat 08/20/24 10:45 US pelvic complete Stat 08/20/24 10:55 CBC Auto Diff [Complete Blood Count AUTO DIFF] Stat CMP [Comprehensive Metabolic Panel] Stat Discontinued Medications Acetaminophen (Acetaminophen 325 Mg Tablet) 975 mg PO NOW ONE Stop: 08/20/24 10:46 Last Admin: 08/20/24 10:55 Dose: 975 mg Documented By: MALVIN Vital Signs Vital signs: Vital Signs - 8 hr 08/20/24 13:26 Pulse Rate 74 Blood Pressure 177/107 H Pulse Oximetry 97 Oxygen Delivery Method Room Air MDM - Female Genitourinary Lab Data 08/20/24 10:55 08/20/24 10:55 Labs: Lab Results 08/20/24 08/20/24 Range/Units 10:00 10:55 WBC 6.3 (4.5-11.0) X10^3/uL RBC 4.87 (4.0-5.2) X10^6/uL Hgb 13.2 (12.0-16.0) g/dL Hct 39.0 (36-46) % MCV 80.1 (80-100) fL MCH 27.1 (26-34) PG MCHC 33.8 (30-36) % RDW 13.8 (11.6-14.8) % Plt Count 315 (150-400) X10^3/uL Neut % (Auto) 66.3 (50-75) % Lymph % (Auto) 23.0 L (25-40) % Williams % (Auto) 6.3 (3-14) % Eos % (Auto) 3.3 (2-4) % Baso % (Auto) 1.1 (0-2) % Neut # (Auto) 4200 (5665-9228) /uL Lymph # (Auto) 1400 (3683-9232) /uL Williams # (Auto) 400 (0-900) /uL Eos # (Auto) 200 (0-450) /uL Baso # (Auto) 100 (0-100) /uL Sodium 138 (137-145) mmol/L Potassium 3.4 (3.4-5.1) mmol/L Chloride 107 (98-107) mmol/L Carbon Dioxide 25 (22-32) mmol/L BUN 10 (7-17) mg/dL Creatinine 0.76 (0.52-1.04) mg/dL Estimated GFR > 60 (>60) mL/min BUN/Creatinine Ratio 13.2 (6-22) Glucose 97 (70-100) mg/dL Calcium 9.0 (8.4-10.2) mg/dL Total Bilirubin 0.4 (0.2-1.3) mg/dL AST 23 (14-36) IU/L ALT 17 (<35) IU/L Alkaline Phosphatase 57 (38-126) U/L Total Protein 6.9 (6.3-8.2) g/dL Albumin 3.9 (3.5-5.0) g/dL Globulin 3.0 (1.7-4.1) g/dL Albumin/Globulin Ratio 1.3 (1.0-2.8) Urine RBC None seen (0-5/HPF) Urine WBC 0-1/hpf (0-5/HPF) Ur Squamous Epith Cells 5-10 /hpf H (0-5/HPF) Urine Bacteria Few (2-10) H (None) Ur Culture Indicated? 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 Additional endovaginal scanning was necessary due to incomplete visualization of the adnexal and endometrial structures by transabdominal scanning. COMPARISON: [facility], US, US PELVIC COMPLETE, 08/20/2018, 19:42. FINDINGS: Uterus: Uterus is anteverted and normal in size at 7.0 x 4.2 x 3.8 cm. The myometrium is homogeneous. The endometrium measures 3 mm combined thickness. Question possible endometrial polyp measuring 1.3 x 0.3 cm. Ovaries: The right ovary measures 1.4 x 3.0 x 2.4 cm, with a calculated ovarian volume of 5 cc. The left ovary measures 1.8 x 1.7 x 2.6 cm, with a calculated ovarian volume of 4 cc. The ovaries have a normal sonographic appearance. Less than 12 follicles can be seen in each ovary. No adnexal masses are seen. Other: No pathologic free abdominal or pelvic fluid. IMPRESSION: Question small endometrial polyp. This is not definite. Otherwise unremarkable. We strive to produce accurate, complete, and clear reports of imaging services. To assist us in improving patient care, this report was composed using standard report templates and voice recognition software. Therefore, it may contain abnormal punctuation, insertions and/or omissions. Occasional wrong-word or sound-alike substitutions may occur. Though we review the report and make efforts to correct it, we do recommend that the report be read carefully in proper context to recognize any text inaccuracies. Dictated by: Isrrael Wilson M.D. on 08/20/2024 at 12:45 Approved by: Isrrael Wilson M.D. on 08/20/2024 at 12:49 MDM Narrative Medical decision making narrative: Patient healthy 28-year-old female who presents today with abdominal pain. She does her on her menstrual cycle few days ago she had some heavy bleeding bleeding has decreased some. Blood work has been heavy she has no anemia or electrolyte abnormality. Ultrasound does not show any evidence of ovarian cyst or torsion. She has possibly a small endometrial polyp. she has no vaginal discharge no concern for STD, she has no leukocytosis afebrile unlikely to be PID. I suspect menstrual cramps causing her pain today. Discharge Plan Departure Patient Disposition: Home Clinical Impression: Painful menstrual periods, Irregular menstrual cycle Instructions: DI for Dysmenorrhea Activity Restrictions/Additional Instructions: *You have been diagnosed with painful irregular bleeding *What to do: At this time you may have a small endometrial polyp. Please follow-up with PCP/silverer *Continue to take medications as directed Motrin 600 mg every 6 hours if needed for mild to moderate pain Friendly 1 tablet every 6 hours if needed for severe pain *Follow up with your primary care provider in 2-3 days or call [phone] *Return to ER if you should have increasing pain continued bleeding more than 2 super tampons in 1 hour or any new, worsening or concerning symptoms Prescriptions: New hydrocodone-acetaminophen 5-325 mg tablet 1 tab PO Q6H PRN (Reason: pain) Qty: 8 0RF No Action escitalopram oxalate [Lexapro] 20 mg tablet 20 mg PO DAILY Qty: 90 0RF Ozempic 2 mg/dose (8 mg/3 mL) pen injector 2 mg SUBCUT QWEEK Qty: 3 5RF albuterol sulfate 90 mcg/actuation HFA aerosol inhaler 2 puff inhalation Q6H PRN (Reason: shortness of breath or wheezing) Qty: 8.5 0RF hydrochlorothiazide 25 mg tablet 25 mg PO DAILY Qty: 90 4RF Referrals: Bhanu Verdugo MD [Primary Care Provider] - Stand Alone Forms: Patient Portal/API
[2024-08-20 11:05] LABS: Add Manual Diff / Slide Review NO; Basophils Absolute Auto 100 /uL (0-100); Basophils Percent Auto 1.1 % (0-2); Eosinophils Absolute Auto 200 /uL (0-450); Eosinophils Percent Auto 3.3 % (2-4); Hemoglobin 13.2 g/dL (12.0-16.0); Lymphocytes Absolute Auto 1400 /uL (1100-4500); Mean Corpuscular HGB Conc 33.8 % (30-36); Mean Corpuscular Hemoglobin 27.1 PG (26-34); Mean Corpuscular Volume 80.1 fL (80-100); Monocytes Absolute Auto 400 /uL (0-900); Monocytes Percent Auto 6.3 % (3-14); Neutrophils Absolute Auto 4200 /uL (1500-7000); Neutrophils Percent Auto 66.3 % (50-75); Platelet Count 315 X10^3/uL (150-400); Red Blood Cell Count 4.87 X10^6/uL (4.0-5.2); Red Cell Distribution Width 13.8 % (11.6-14.8); White Blood Cell Count 6.3 X10^3/uL (4.5-11.0)
[2024-08-20 11:18] LABS: Alanine Aminotransferase 17 IU/L (<35); Albumin 3.9 g/dL (3.5-5.0); Albumin Globulin Ratio 1.3 (1.0-2.8); Alkaline Phosphatase 57 U/L (38-126); Aspartate Aminotransferase 23 IU/L (14-36); BUN Creatinine Ratio 13.2 (6-22); Bilirubin Total 0.4 mg/dL (0.2-1.3); Blood Urea Nitrogen 10 mg/dL (7-17); Carbon Dioxide 25 mmol/L (22-32); Chloride 107 mmol/L (98-107); Estimated Glomerular Filt Rate > 60 mL/min (>60); Glucose 97 mg/dL (70-100); HEMOLYSIS < 15 (0-50); Potassium 3.4 mmol/L (3.4-5.1); Sodium 138 mmol/L (137-145); Total Protein 6.9 g/dL (6.3-8.2)
--- NOTE | 2024-08-20 11:43 | PC.NURSE ---
Denies dizziness. Has had one episode of nausea and currently denies nausea. Reports feels like the worse period shes ever had with intense cramping and higher than usual blood flow starting saturday through saturday she was saturating extra-max tampons in 1.5hours. She has been taking tylenol/ibuprofen which has helped with pain. She has not seen an OBGYN but mentions being concerned she may have PCOS or endometriosis.
[2024-08-20 13:26] VITALS: BP 177/107; PULSE 74; O2SAT 97
== END 2024-08-20 13:26 | disposition home or self-care (01) ==
PROVIDERS: Emergency Provider Emergency Medicine; PCP Family Medicine
DX: N92.6 Irregular menstruation, unspecified (principal); N94.6 Dysmenorrhea, unspecified; R10.2 Pelvic and perineal pain
CPT/HCPCS: 36415; 76830; 76856; 80053; 81003; 81015; 81025; 85025; 93975; 99283; 99284